=== PATIENT | male | born 1940 | race Caucasian/White ===

== ENCOUNTER 2016-11-20 09:58 | Emergency (ER) | payer OTHER ==
--- NOTE | 2016-11-20 11:13 | EDPHY ---
HPI/HX/ROS/PE/MDM Narrative: CHIEF COMPLAINT: Head injury HISTORY OF PRESENT ILLNESS: The patient is a 76-year-old male, on hospice, who presents with neck pain after a mechanical fall two days ago. The patient fell two nights ago while walking to the bathroom. He hit his head on a wooden table and sustained a laceration to the back of his head. Patient did not lose consciousness. Since the fall the patient complains of worsening neck pain. He denies neurologic complaints, numbness, tingling, headache, dizziness, confusion , or weakness. Patient and family declined any evaluation at the time of the accident, stating he is in hospice and did not want interventions. Pain in neck has been increasing and they are worried about a significant injury. Requests imaging studies only. Patient in hospice secondary to CHF. Hospice nurse present in room also. REVIEW OF SYSTEMS: Aside from elements discussed in the HPI, a comprehensive 10-point review of systems was reviewed and is negative. PAST MEDICAL HISTORY: CHF, Pacemaker, Asthma. Prior cervical spine surgery. SOCIAL HISTORY: On hospice. Nephew is POA, he is at bedside. VITAL SIGNS: Reviewed by me GENERAL: Elderly male, reports pain. Pleasant. In a soft collar. HEENT: Healing scabbed over 2cm laceration on right occipital. Eyes: No icterus, no injection. PERRL, EOMI.Mouth: moist mucous membranes. No erythema or lesions. Neck: Low midline C-spine healed incision. No tenderness to palpation. FROM without pain. LUNGS: Crackles and wheezes on the right side. Diminished breath sounds on the left. CARDIAC: Tachycardic, Irregularly irregular, no rubs, murmurs or gallops. ABDOMEN: Soft, nontender, nondistended, bowel sounds normal. BACK: No CVA tenderness. EXTREMITIES: No trauma. Bilateral pitting edema. Range of motion is normal throughout. NEURO: Alert and oriented, grossly nonfocal. SKIN: Warm and dry, no rash. PSYCHIATRIC: Normal mentation, no agitation. Portions of this note were transcribed by a medical records auditor. I personally performed a history, physical exam, medical decision making, and confirmed accuracy of information the transcribed note. ED Course: The patient's POA, his nephew, is at the bedside. He requests CT head and neck. Patient does not want any lab work done at this time. CT head and neck are negative for acute traumatic findings. Moderate left pleural effusion present; not unexpected give patients severe CHF. Plan to discharge patient home. Patient, family, and hospice all comfortable with plan. MDM: Differential diagnosis of fall in the elderly was considered including but not limited to intracranial injury, long bone and pelvic bone fracture, spinal injury, intrathoracic injury, extremity injury, intra-abdominal injury, lacerations, abrasions, and contusions. - Data Points Imaging Results: CT Head: Impression: 1. No acute intracranial findings. 2. Diffuse cerebral atrophy with periventricular and subcortical low attenuation consistent with chronic microvascular ischemic gliosis. Findings discussed with Dr. Jenny Gray, on November 20, [address] C spine: Impression: 1. No acute posttraumatic abnormality identified. 2. Multilevel degenerative change and spondylolisthesis with moderate spinal canal narrowing and moderate to severe neural foraminal stenosis, left greater than right, at C3-C4. 3. Moderate left pleural effusion. 4. Additional findings as above. Findings discussed with Dr. Jenny Gray, on November 20, 2016 at 1307 hours. Imaging: Discussed imaging studies w/ felt pad cutter Radiologist General Time Seen by Provider: 11/20/16 10:57 Initial Vital Signs: Initial Vital Signs Temperature (C) 36.8 C 11/20/16 10:20 Heart Rate 108 H 11/20/16 10:20 Respiratory Rate 8 L 11/20/16 10:20 Blood Pressure 98/60 L 11/20/16 10:20 O2 Sat (%) 95 11/20/16 10:20 O2 Delivery Mode Nasal Cannula O2 (L/minute) 4 Allergies/Adverse Reactions: No Known Allergies Allergy (Unverified 11/20/16 10:19) Home Medications: Medication Instructions Recorded Lasix Oral Liquid 11/20/16 Potassium 11/20/16 SOTALOL 11/20/16 morphINE 11/20/16 Departure - Departure Disposition: Home, Routine, Self-Care Clinical Impression: Neck pain Scalp laceration Qualifiers: Encounter type: initial encounter Qualified Code(s): S01.01XA - Laceration without foreign body of scalp, initial encounter Cervical strain Qualifiers: Encounter type: initial encounter Qualified Code(s): S16.1XXA - Strain of muscle, fascia and tendon at neck level, initial encounter Condition: Good Instructions: Neck Pain (ED), Cervical Strain (ED) Additional Instructions: Return to the Emergency Department with new or worsening symptoms. Pain control as needed. Referrals: Patient,NotPresent [Unknown] - As per Instructions Report Scribed for: Jenny Gray Report Scribed by: An Coates Date of Report: 11/20/16 Time of Report: 11:26
[2016-11-20 13:28] VITALS: RESP 16; O2SAT 98
[2016-11-20 14:17] VITALS: BP 108/75; PULSE 115; TEMP 98.1
== END 2016-11-20 14:48 | disposition home or self-care (01) ==
LOC: EDUNIT#
DX: S01.01XA Laceration without foreign body of scalp, initial encounter (principal); S16.1XXA Strain of muscle, fascia and tendon at neck level, initial encounter; S19.9XXA Unspecified injury of neck, initial encounter; I50.9 Heart failure, unspecified; J45.909 Unspecified asthma, uncomplicated; W18.39XA Other fall on same level, initial encounter